=== PATIENT | female | born 1965 | race Caucasian/White ===

== ENCOUNTER 2024-01-30 16:41 | Inpatient (IN) | payer MEDICARE, SELFPAY ==
[2024-01-30] VITALS (8 sets, daily range): BP systolic 158–170; BP diastolic 100; PULSE 74–86; TEMP 36.6; O2SAT 84–94; BMI 33.1; BMI 32.8
--- NOTE | 2024-01-30 16:54 | ED_ITS ---
HPI - SOB/Dyspnea General Chief Complaint: Shortness of Breath/Dyspnea Stated Complaint: sob Time Seen by Provider: 01/30/24 16:42 Source: patient and family Mode of arrival: walk-in Limitations: no limitations History of Present Illness HPI Narrative: Patient here complaining shortness of breath. She is here with her . She said approximately week ago she developed a cough but took cdqd-imm-adofglg meds and it went away. She did not test herself for COVID. She got the 2 initial vaccines but none since that time. She and her continue to smoke cigarettes. She has been told that she has COPD. She has not been using her Spiriva or her nebulizer treatments regularly because she says they really do not help her. She has not been on any steroids for many many years. She has not had nausea vomiting or diarrhea. She has no known history of cardiac disease arrhythmia or coronary disease. She does not have any swelling of her legs. She has had knee replacement surgery. She goes to the [facility] in [place] but she refuses to go to the hospital. To her knowledge she has never seen a surgical services asst. Related Data Allergies Allergy/AdvReac Type Severity Reaction Status Date / Time pregabalin (From Lyrica) AdvReac Severe patient Verified 01/30/24 16:55 states makes her crazy PFSH PFSH Social History Little interest or pleasure in doing things: not at all Feeling down, depressed, or hopeless: not at all Exam Narrative Exam Narrative: Awake alert [place] x 3 normal cognition and mental status. A HEENT shows no upper airway obstruction no evidence of swelling in her oral cavity there is no stridor no drooling airway exchange is labored. Respiratory rate is increased as well. Lung shows substantial wheezing and tightness bilaterally. Heart sounds are normal with no murmur. She has no abdominal or epigastric discomfort. Neurological examination shows no focal findings deficits or complaints. Extremity showed no pitting edema phlebitis erythema or cellulitis. Constitutional Vital Signs, click to edit/add: Last Vital Signs Temp 98 F 01/30/24 16:45 Pulse 86 01/30/24 16:45 Resp 28 H 01/30/24 16:45 BP 170/100 H 01/30/24 16:45 Pulse Ox 94 L 01/30/24 16:45 O2 Del Method Room Air 01/30/24 16:45 Course Vital Signs Vital signs: Vital Signs Temperature 98 F 01/30/24 16:45 Pulse Rate 86 01/30/24 16:45 Respiratory Rate 28 H 01/30/24 16:45 Blood Pressure 170/100 H 01/30/24 16:45 Pulse Oximetry 94 L 01/30/24 16:45 Oxygen Delivery Method Room Air 01/30/24 16:45 Temperature 98 F 01/30/24 16:45 Pulse Rate 86 01/30/24 16:45 Respiratory Rate 28 H 01/30/24 16:45 Blood Pressure 170/100 H 01/30/24 16:45 Pulse Oximetry 94 L 01/30/24 16:45 Oxygen Delivery Method Room Air 01/30/24 16:45 MDM - SOB/Dyspnea MDM Narrative Medical decision making narrative: This patient's chest x-ray did not show any acute findings and her viral studies were negative. Her CO2 on venous studies was not substantially elevated. Cardiac troponin is negative. She was given ezea-py-seoy nebulizer treatments and intravenous steroids Solu-Medrol. She did have some improvement but still has wheezing. She agrees to be admitted to the hospital for ongoing care and treatment. Her twelve-lead EKG shows sinus rhythm rate [address] segment el evation Differential Diagnosis Differential diagnosis: Likely acute exacerbation of chronic obstructive airways disease, congestive heart failure and community acquired pneumonia Discharge Plan Discharge Chief Complaint: Shortness of Breath/Dyspnea Clinical Impression: Acute exacerbation of chronic obstructive pulmonary disease Patient Disposition: Admitted as Observation Time of Disposition Decision: 17:42 Print Language: Turkmen Referrals: Physician,Non-Staff, [Primary Care Provider] - 1 week
--- NOTE | 2024-01-30 16:55 | ECG_ITS ---
The [facility] Test Date: 2024-01-30 Pat Name: MARIJA GERMAIN Department: Room: - Gender: Female News Videographer: : 1965 Requested By: [id number] Order Number: [id number] Reading MD: INNA SNYDER Measurements Intervals Gerald Rate: 80 P: 66 [place]: 220 QRS: 42 QRSD: 76 T: 65 QT: 374 QTc: 410 Interpretive Statements 1100 Sinus rhythm 2231 First degree AV block 9150 abnormal ECG Compared to ECG 06/23/2016 09:25:12 First degree AV block now present T-wave abnormality no longer present Electronically Signed On 01-30-2024 23:06:17 EDT by INNA SNYDER
--- NOTE | 2024-01-30 16:56 | XR_ITS ---
The [address] [address] Patient Name: MARIJA GERMAIN MRN: [id number] date: 1965 Sex: F Assigned Patient Location: ER Current Patient Location: ED.MAIN Accession/Order Number: [id number] Exam Date: 01/30/2024 17:29 Report Date: 01/30/2024 17:49 At the request of: SKYLAR JIMÉNEZ Procedure: XR chest 1V EXAM: XR chest 1V HISTORY: Dyspnea; technologist notes state cough for one month, shortness of breath for a couple weeks, chest pain for one week and bilateral leg swelling. COMPARISON: None. TECHNIQUE: AP upright portable chest radiograph performed. FINDINGS: The trachea is midline. The heart size is within normal limits. There are mild patchy densities at both lung bases suggesting atelectasis and/or infiltrate. There is no pulmonary vascular congestion. There is no pneumothorax. There is no acute osseous abnormality. There are degenerative changes at both glenohumeral articulations. XR/XR chest 1V IMPRESSION: Mild patchy densities at both lung bases suggesting atelectasis and/or infiltrates. Electronically authenticated by: SALVADOR HAMILTON Date: 01/30/2024 17:49
[2024-01-30] MEDS: METHYLPREDNISOLONE SOD SUCC PF 125 MG/2 ML VIAL IVP (17:10)
[2024-01-30] MEDS: IPRATROPIUM/ALBUTEROL SULFATE 3 ML AMPUL.NEB IH ×2 (17:15→23:18)
[2024-01-30 17:16] LABS: Basophils Percent Auto 0.1 % (0.2-2.0); Eosinophils Absolute Auto 0.2 10^3/uL (0.0-0.7); Eosinophils Percent Auto 2.8 % (0.9-7.0); Hemoglobin 16.1 g/dL (12.0-16.0); Immature Granulocytes Abs Auto 0.01 10^3/uL (0.00-0.03); Immature Granulocytes Pct Auto 0.1 % (0.0-0.5); Lymphocytes Absolute Auto 2.8 10^3/uL (1.2-3.8); Lymphocytes Percent Auto 35.9 % (20.5-60.0); Mean Corpuscular HGB Conc 34.3 g/dL (29.9-35.2); Mean Corpuscular Hemoglobin 33.3 pg (26.7-34.0); Mean Corpuscular Volume 97.1 fL (81.0-99.0); Mean Platelet Volume 9.4 fL (9.5-13.5); Monocytes Absolute Auto 0.6 10^3/uL (0.3-0.8); Monocytes Percent Auto 7.9 % (1.7-12.0); Neutrophils Absolute Auto 4.1 10^3/uL (1.4-6.5); Neutrophils Percent Auto 53.2 % (43.0-75.0); Platelet Count 242 10^3/uL (150-450); Red Blood Count 4.84 10^6/uL (4.20-5.40); Red Cell Distribution Width 11.4 % (11.0-15.0); White Blood Count 7.8 10^3/uL (4.0-11.0)
[2024-01-30 17:28] LABS: Influenza Virus A Antigen Negative; Influenza Virus B Antigen Negative; Internal Control Within Normal Limits; Respiratory Syncytial Virus Not Detected (NOT DETECTE); SARS-CoV-2 Ag NEGATIVE (NEGATIVE)
[2024-01-30 17:31] LABS: Alanine Aminotransferase 14 U/L (14-59); Albumin Globulin Ratio 1.1; Albumin Level 3.5 g/dL (3.4-5.0); Alkaline Phosphatase 113 U/L (46-116); Aspartate Amino Transferase 15 U/L (15-37); Bilirubin Total 0.6 mg/dL (0.2-1.0); Calcium 8.9 mg/dL (8.5-10.1); Carbon Dioxide 28.7 mmol/L (21.0-32.0); Chloride 105 mmol/L (98-107); Estimated GFR (African America >60 (>=60 mL/min/1.73m^2); Estimated GFR (Non-African Ame >60 (>=60 mL/min/1.73m^2); Globulin 3.2 g/dL; Glucose 109 mg/dL (74-106); Potassium 3.7 mmol/L (3.5-5.1); Sodium 142 mmol/L (136-145); Total Protein 6.7 g/dL (6.4-8.2); Troponin I High Sensitivity 47.4 pg/mL (4.0-51.3)
[2024-01-30] MEDS: ALBUTEROL SULFATE 2.5 MG/3 ML VIAL NEB IH (17:44)
[2024-01-30] MEDS: OXYCODONE HCL 5 MG TABLET 10 MG PO (21:15)
[2024-01-30] MEDS: NICOTINE 21 MG PATCH.TD24 TD (21:15)
[2024-01-30] MEDS: GABAPENTIN 400 MG CAPSULE 1200 MG PO (21:15)
[2024-01-30] MEDS: CARVEDILOL 25 MG TABLET PO (21:16)
[2024-01-30] MEDS: DOXYCYCLINE HYCLATE 100 MG in 0.9 % SODIUM CHLORIDE 100 ML IV (21:25)
--- NOTE | 2024-01-30 23:18 | RESP.RT ---
Placed pt on 3L nasal cannula after breathing tx and Sp02 increased to 92%
[2024-01-31] VITALS: BP 148/92; PULSE 77; TEMP 36.7; O2SAT 90
[2024-01-31] MEDS: MORPHINE SULFATE 15 MG TABLET.ER PO (00:58)
[2024-01-31 04:48] VITALS: O2SAT 91
--- NOTE | 2024-01-31 05:14 | PC.NURSE ---
At the beginning of shift around 1929, patient told nurse that she is on a very strict schedule with taking her pain meds for her chronic back pain. She has been taking them for 30+ years. She takes 10mg of oxy Q6 and 15 of MS Contin BID. Pt told nurse she wanted the morphine around 1230 and after that she did not want to be woke up for anything as she usually sleeps until 10-1030 and then takes her other morphine dose so that the doses last and her pain does not get out on control. Nurse told pt she would do what she could to not wake her and also had her labs re timed for late morning. Night nurse will pass along to dayshift about not waking pt up and staying on top of her pain medications.
[2024-01-31] MEDS: METHYLPREDNISOLONE SOD SUCC PF 40 MG/ML VIAL IVP (05:33)
--- NOTE | 2024-01-31 08:24 | P.HP_ITS ---
HPI H&P: HPI History of Present Illness Chief complaint: Shortness of Breath, Acute Exacerbation, COPD Narrative: Patient is a 59 year old white female with past medical history of tobacco abuse, GERD, Chronic back pain, Hypertension, COPD who presented to the ER with shortness of breath. She developed a cough about 1 week and just took OTC medications. She recently developed SOB. 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 She is suppose to take spiriva but does not and albuterol as needed. She feels it doesn't help her much. She continues to smoke. She denies fevers or chills. She wears no home oxygen. ER findings: WBC's 7.8, Trop 47.4, ProBNP 243, Viral testing (influenza, covid, rsv) negative, CXR: showed Lung base densities infiltrates vs atelectasis. Patient had decrease in oxygen saturations to 84% and was placed on 3L NC oxygen. Currently she is at 93% on 3L NC. Patient was admitted for Acute exacerbation of COPD. When I went to examine her this morning, patient was still very tight, wheezing, coughing, and short of breath with conversing. Opioid HPI Opioid Management Most Recent Pain and Opioid Data: Last Pain Scale 8 01/31/24 00:58 01/31/24 Last Pain Assessment 01/31/24 09:00 Last MAR Pain Assessment 01/31/24 00:58 Last ORT Total Score 3 01/30/24 18:41 01/30/24 Last ORT Risk Category Low Risk 01/30/24 18:41 01/30/24 Review of Systems ROS Narrative ROS: a complete review of systems were reviewed with patient and are positive as below or listed in History of Chief Complaint. General: no fever, chills, night sweats Head: no headache, trauma, visual changes, nausea or vomiting Skin: no reported rashes, itching or sores Eyes: no blurriness of vision Ears: no reported hearing loss, vertigo, earache, or tinnitus Throat: no sore throat, hoarseness, swelling of neck, or tongue pain Heart: no chest pain Lungs: shortness of breath and cough GI: no diarrhea or vomiting/nausea Urinary: no urinary urgency, frequency or pain Neuro: no numbness or tingling HEM: no bleeding issues or bruising ENDO: no thyroid problems Psych: no anxiety or depression PFSH PFS Medical History (Updated 01/31/24 @ 08:33 by Shae Aranda DO) Smoker ?F17.200 - Nicotine dependence, unspecified, uncomplicated (ICD-10) Chronic back pain ?M54.9 - Dorsalgia, unspecified (ICD-10) ?G89.29 - Other chronic pain (ICD-10) BP (high blood pressure) ?I10 - Essential (primary) hypertension (ICD-10) COPD (chronic obstructive pulmonary disease) ?J44.9 - Chronic obstructive pulmonary disease, unspecified (ICD-10) Surgical History Right knee meniscal tear ?S83.206A - Unspecified tear of unspecified meniscus, current injury, right knee, initial encounter (ICD-10) History of repair of anterior cruciate ligament of left knee ?Z98.890 - Other specified postprocedural states (ICD-10) H/O tubal ligation ?Z98.51 - Tubal ligation status (ICD-10) History of hip replacement ?Z96.649 - Presence of unspecified artificial hip joint (ICD-10) Family History Mother Family history of cancer Family history of diabetes mellitus Sister Family history of cancer Brother Family history of diabetes mellitus Social History Within the past year, how often did you have a drink containing alcohol: never Score interpretation: A score less than 3 is consistent with normal alcohol consumption. Smoking status: Heavy tobacco smoker Non-prescribed substance use: denies use Previous occupational history: disabled Highest level of school completed/degree received: some college, no degree Are you now , , , , never or living with a partner: Little interest or pleasure in doing things: not at all Feeling down, depressed, or hopeless: not at all Feel stressed/tense/nervous/anxious/difficulty sleeping: not at all Meds Home Medications and Allergies Home Medications ?Medication ?Instructions ?Recorded ?Confirmed ?Type albuterol sulfate 90 mcg/actuation 2 inh inhalation Q4H PRN shortness 01/30/24 01/30/24 History aerosol inhaler of breath or wheezing carvedilol 25 mg tablet (Coreg) 25 mg PO BID 01/30/24 01/30/24 History gabapentin 600 mg tablet 1,200 mg PO .qhs 01/30/24 01/30/24 History gabapentin 600 mg tablet 600 mg PO DAILY 01/30/24 01/30/24 History (Neurontin) lisinopril 40 mg tablet 40 mg PO DAILY 01/30/24 01/30/24 History montelukast 10 mg tablet 10 mg PO QPM 01/30/24 01/30/24 History (Singulair) morphine 15 mg tablet,extended 15 mg PO Q12H 01/30/24 01/30/24 History release (MS Contin) omeprazole 40 mg capsule,delayed 40 mg PO DAILY 01/30/24 01/30/24 History release oxycodone 10 mg tablet 10 mg PO Q6H PRN pain 01/30/24 01/30/24 History tiotropium bromide 2.5 2 inh inhalation DAILY 01/30/24 01/30/24 History mcg/actuation mist for inhalation (Spiriva Respimat) doxycycline hyclate 100 mg tablet 100 mg PO BID 7 days #14 tabs 01/31/24 Rx prednisone 20 mg tablet 20 mg PO BID 7 days #14 tabs 01/31/24 Rx Allergies Allergy/AdvReac Type Severity Reaction Status Date / Time pregabalin (From Lyrica) AdvReac Severe patient Verified 01/30/24 16:55 states makes her crazy Exam Narrative Exam Narrative: General: Patient is alert, and oriented to person, place and time with normal affect, proper hygiene Skin: no visible rashes, or ulcers Head: atraumatic, acephalic Eyes: PERRLA, no nystagmus present, conjunctiva clear, no scleral icterus Ears: normal Tympanic Membrane, normal gross auditory acuity Nose: symmetric, no discharge, no maxillary or frontal sinus tenderness Mouth/Throat: no erythema, exudate, or tonsillar enlargement, normal dentition Neck: no masses palpated, normal thyroid, no JVD or audible carotid bruits Heart: Normal rate and rhythm, no murmurs/rubs/gallops Lungs: no audible wheezes, crackles and normal breath sounds all lung flores Abdomen: Normal audible bowel sounds, no distension, No palpable masses, no organomegaly, no rebound/guarding/ or rigidity Musculoskeletal: muscle atrophy noted, ROM is limited due to being in hospital bed, no swelling bilateral lower extremities Vascular: Normal carotid, radial, femoral, posterior tibial, and dorsalis pedis pulses Lymph: no supraclavicular, axillary, or anterior/posterior cervical adenopathy Neuro: CN II-X grossly intact, normal sensation upper and lower extremities Constitutional Vital Signs, click to edit/add: Last Vital Signs Temp 98.0 F 01/31/24 00:00 Pulse 77 01/31/24 00:00 Resp 16 01/31/24 00:00 BP 148/92 H 01/31/24 00:00 Pulse Ox 91 L 01/31/24 04:48 O2 Del Method Nasal Cannula 01/31/24 04:48 O2 Flow Rate 3 01/31/24 04:48 Results Labs Labs: Short CBC 01/30/24 Range/Units 16:58 WBC 7.8 (4.0-11.0) 10^3/uL Hgb 16.1 H (12.0-16.0) g/dL Hct 47.0 (36.0-48.0) % Plt Count 242 (150-450) 10^3/uL BMP 01/30/24 16:58 Sodium 142 Potassium 3.7 Chloride 105 Carbon Dioxide 28.7 BUN 13.0 Creatinine 0.81 Glucose 109 H Calcium 8.9 Liver Function 01/30/24 Range/Units 16:58 Total Bilirubin 0.6 (0.2-1.0) mg/dL AST 15 (15-37) U/L ALT 14 (14-59) U/L Alkaline Phosphatase 113 (46-116) U/L Albumin 3.5 (3.4-5.0) g/dL Assessment and Plan Assessment and Plan (1) Acute respiratory failure with hypoxia: Assessment and Plan: Patient dropped to 88% on room air so was placed on 2L NC last night. She is still very tight. I have placed her on duonebs q4 hours scheduled. She will continue albuterol as needed. Continue doxycycline, solumedrol. OPEP. (2) Acute exacerbation of chronic obstructive pulmonary disease: Assessment and Plan: CXR negative for pneumonia, see #1 (3) Chronic back pain: Assessment and Plan: continue home meds. Qualifiers: Back pain laterality: unspecified Back pain location: back pain in unspecified location Qualified Code(s): M54.9 - Dorsalgia, unspecified; G89.29 - Other chronic pain (4) BP (high blood pressure): Assessment and Plan: continue coreg and lisinopril Qualifiers: Hypertension type: primary hypertension Qualified Code(s): I10 - Essential (primary) hypertension (5) Smoker: Assessment and Plan: Patient would benefit from stopping smoking Plan Patient is a full code Patient is inpatient status and is expected to cross 2 midnights for hospital necessary care.
[2024-01-31 10:12] VITALS: O2SAT 85
--- NOTE | 2024-01-31 10:14 | RESP.RT ---
Up to BR on RA SPO2 85%. Discussed with patient effects of hypoxia. O2 resumed at 3L.
[2024-01-31] MEDS: IPRATROPIUM/ALBUTEROL SULFATE 3 ML AMPUL.NEB IH (10:32)
--- NOTE | 2024-01-31 10:45 | PC.NURSE ---
RN entered room after RT was finishing up a breathing treatment. Patient was joking around and laughing with them as they were leaving. As RN entered the room patient automatically sounded aggressive asking do you have my morning meds? . Rn stated yes she did, patient then asked how about my pain meds? . RN checked the MAR and informed her she could get her oxycodone., she then asked about her morphine. RN informed her it was not scheduled until noon. Patient started to become belligerent and demanding the nurse get the Stating this is how I take my meds at home, and I have them in my purse and I will just take them . Patient then stated I will just leave. RN exited room and informed Dr. Aranda of situation. Land Agent then re entered room and informed patient that was with another patient and she would be in to talk with her momentarily. She became aggressive again stated just give me my meds and get the fuck out of my room. RN informed patient that she did not have to tolerate being spoken to like this and exited the room. As RN was exiting room patient yelled out remove this iv or I will do it myself patient then proceeded to pull out iv and threw it across the room. Dr. Aranda at bedside.
--- NOTE | 2024-01-31 11:01 | PM.DS1 ---
DS: Providers Provider Date of admission: 01/31/24 08:40 Primary care physician: Non-Staff Physician, Attending physician on admission: Shae Aranda Discharging clinician: Shae Aranda DS: Diagnosis Discharge Diagnosis (1) Acute respiratory failure with hypoxia: (2) Acute exacerbation of chronic obstructive pulmonary disease: (3) Chronic back pain: Qualifiers: Back pain location: back pain in unspecified location Back pain laterality: unspecified Qualified Code(s): M54.9 - Dorsalgia, unspecified; G89.29 - Other chronic pain (4) BP (high blood pressure): Qualifiers: Hypertension type: primary hypertension Qualified Code(s): I10 - Essential (primary) hypertension (5) Smoker: DS: Summary Hospital Course Hospital Course: Patient left AMA Status at Discharge Overall status at discharge: patient is not back to baseline Time Spent with Patient Time attestation: Total time spent providing and/or coordinating discharge services: Exam Constitutional Vital Signs, click to edit/add: Last Vital Signs Temp 98.0 F 01/31/24 00:00 Pulse 77 01/31/24 00:00 Resp 16 01/31/24 00:00 BP 148/92 H 01/31/24 00:00 Pulse Ox 85 L 01/31/24 10:12 O2 Del Method Room Air 01/31/24 10:12 O2 Flow Rate 3 01/31/24 04:48 DS: Data Data Completed and Pending Labs on day of discharge: Labs from last 24 hours 01/30/24 01/30/24 17:02 16:58 WBC 7.8 RBC 4.84 Hgb 16.1 H Hct 47.0 MCV 97.1 MCH 33.3 MCHC 34.3 RDW 11.4 Plt Count 242 MPV 9.4 L Neut % (Auto) 53.2 Lymph % (Auto) 35.9 [place] % (Auto) 7.9 Eos % (Auto) 2.8 Baso % (Auto) 0.1 L Neut # (Auto) 4.1 Lymph # (Auto) 2.8 [place] # (Auto) 0.6 Eos # (Auto) 0.2 Baso # (Auto) 0.0 Abs Immat Gran (auto) 0.01 Imm/Tot Granulo (auto) 0.1 Sodium 142 Potassium 3.7 Chloride 105 Carbon Dioxide 28.7 Anion Gap 12.0 BUN 13.0 Creatinine 0.81 Est GFR ( Amer) >60 Est GFR (Non-Af Amer) >60 BUN/Creatinine Ratio 16.0 Glucose 109 H Calcium 8.9 Total Bilirubin 0.6 AST 15 ALT 14 Alkaline Phosphatase 113 Troponin I High Sens 47.4 NT-Pro-B Natriuret Pep 243.0 Total Protein 6.7 Albumin 3.5 Globulin 3.2 Albumin/Globulin Ratio 1.1 Influenza Type A Ag Negative Influenza Type B Ag Negative RSV Antigen Not detected SARS-CoV-2 Ag (CV2AG) Negative Discharge Plan Discharge Disposition: Left Against Medical Advice Assessment: Patient started yelling at staff when she had to wait until the appropriate time to administer her Morphine, she wishes to go home and take her medications as she wants. She ripped out her IV herself and took her telemetry off. I was able to calm her down. She signed AMA form and she is aware that her oxygen saturations are not well but still wishes to go home. She plans to follow up with her PCP. I have sent in prednisone 20mg BID x 7 days and Doxycycline 100mg BID x 7 days, This is not a substitution for necessary Hospital Care that she needs. Patient left AMA.
--- NOTE | 2024-01-31 11:17 | CM.NOTE ---
Rounds made with Dr. Aranda. Plan of care discussed with
--- NOTE | 2024-01-31 11:24 | SWNOTE1 ---
Pt left AMA, not able to have pt sign IMM.
--- NOTE | 2024-02-01 13:31 | CM.DCFOLLOWU ---
1st attempt 02/01/24, no answer
--- NOTE | 2024-02-02 14:09 | CM.DCFOLLOWU ---
Person spoke with:patient How are you feeling?well How is your pain?none Did you understand your discharge instructions?yes, pt left AMA, but was provided with scripts to hold her over until follow up Do you have any questions about your discharge instructions?no Were you given any prescriptions at discharge?yes Were you able to get your prescriptions filled?yes Do you understand how to take your medications as ordered?yes Do you have any questions about your follow up appointment and do you plan to keep your follow up appointment? no questions, [facility], but she made an apt with Dr. Felipe for Monday Is there anything else that you would like to discuss?no Questions/Comments/Concerns/Other:none
== END 2024-01-31 11:01 | disposition left against medical advice (07) | DRG 190 ==
LOC: ER 17:42 → MS 18:35
PROVIDERS: Admitting Provider Family Medicine; Emergency Provider Emergency Medicine Emergency Medical Services; Visit Provider Family Medicine
DX: J44.1 Chronic obstructive pulmonary disease with (acute) exacerbation (principal); J96.01 Acute respiratory failure with hypoxia; F17.210 Nicotine dependence, cigarettes, uncomplicated; I10 Essential (primary) hypertension; M54.9 Dorsalgia, unspecified; G89.29 Other chronic pain; Z88.8 Allergy status to other drugs, medicaments and biological substances; Z79.891 Long term (current) use of opiate analgesic; Z79.899 Other long term (current) drug therapy
CPT/HCPCS: 36415; 71045; 80053; 83735; 83880; 84484; 85025; 87040; 87420; 87804; 87811; 93005; 94640; 94761; 96374; 99285; 99406; G0378; J2919